=== PATIENT | female | born 1995 | race Caucasian/White ===

== ENCOUNTER 2020-07-27 23:34 | Emergency (ER) | payer BC, SELFPAY ==
[2020-07-28] MEDS ORDERED: predniSONE 20 MG TAB ONE (00:06)
[2020-07-28] MEDS ORDERED: diphenhydrAMINE 25 MG CAP ONE (00:07)
== END 2020-07-28 00:42 | disposition home or self-care (01) ==
LOC: CSHERS 23:34
DX: T78.40XA Allergy, unspecified, initial encounter (principal)
CPT/HCPCS: 99283; J7512; Q0163

== ENCOUNTER 2021-02-02 03:25 | Emergency (ER) | payer BC ==
[2021-02-02] MEDS ORDERED: Dexamethasone 10 MG/ML VIAL ONE (04:34)
[2021-02-02] MEDS ORDERED: diphenhydrAMINE 50 MG/ML VIAL ONE (04:34)
== END 2021-02-02 05:30 | disposition home or self-care (01) ==
LOC: CSHERS 03:25
DX: T78.40XA Allergy, unspecified, initial encounter (principal); D64.9 Anemia, unspecified
CPT/HCPCS: 96372; 99283; J1100; J1200